=== PATIENT | female | born 2000 | race African-American/Black ===

== ENCOUNTER 2022-11-21 21:26 | Emergency (ER) | payer BC ==
[2022-11-21 21:39] VITALS: RESP 18; TEMP 98; BMI 21.4
[2022-11-21] MEDS ORDERED: IBUPROFEN 600 MG TABLET (FP) PO ONE ×2 (21:49→21:50)
[2022-11-21 22:24] VITALS: BP 111/73; PULSE 80
== END 2022-11-21 22:24 | disposition home or self-care (01) ==
LOC: FER 21:26
DX: M79.675 Pain in left toe(s) (principal)
CPT/HCPCS: 73660-TC-LT-FY; 99283-25